=== PATIENT | male | born 1980 | race Hispanic/Latino ===

== ENCOUNTER 2022-06-09 21:20 | Emergency (ER) | payer OTHER ==
[~2022-06-09] VITALS: Ht 172.7 cm; Wt 83.9 kg
[2022-06-09] MEDS ORDERED: MORPHINE 4 MG SYG IVP ONE (23:30)
[2022-06-10 00:30] VITALS: BP 122/74
[2022-06-10] MEDS ORDERED: HYDROCODONE/ACETAMINOPHEN 5/325 MG TAB PO ONE (01:00)
[2022-06-10] MEDS ORDERED: MORPHINE 4 MG SYG IVP ONE (01:00)
[2022-06-10] MEDS ORDERED: IBUP-2077 PO (01:02)
[2022-06-10] MEDS ORDERED: ACET-2079 PO (01:02)
== END 2022-06-10 01:15 | disposition home or self-care (01) ==
LOC: EDH 21:20
DX: S82.142A Displaced bicondylar fracture of left tibia, initial encounter for closed fracture (principal); S82.442A Displaced spiral fracture of shaft of left fibula, initial encounter for closed fracture; V23.49XA Other motorcycle driver injured in collision with car, pick-up truck or van in traffic accident, initial encounter; Y93.55 Activity, bike riding; Y92.89 Other specified places as the place of occurrence of the external cause; Y99.8 Other external cause status
CPT/HCPCS: 99284; 96374; 29505; 73700; 73610; 73562; J2270 ×2